=== PATIENT | female | born 1965 | race Caucasian/White ===

== ENCOUNTER 2017-06-15 09:48 | Day surgery (SDC) | payer BC ==
[~2017-06-15 09:48] MED LIST: Buffered Lidocaine 0.9% SYRIN* 5 ML/SYR SYRINGE INTRADERM ONE; Bupivacaine 0.5% SDV PF* 30 ML VIAL ONE; DiMENhydriNATE IV* 50 MG/ML VIAL IV PUSH PRN; Famotidine IV* 10 MG/ML 2 ML (20 mg) IV ONE; Lidocaine 1% MPF wEPI 200,000* 30 ML SDV ONE; Morphine INJ* 2 MG/ML 1 ML CARPUJECT IV PRN; PROCHLORPERAZINE INJ 5 MG/ML 2 ML VIAL IV PRN; fentaNYL* 50 MCG/ML 2 ML VIAL (100 MCG VIAL) IV PRN; oxyCODONE/Acetamin 5/325 MG* TAB PO PRN
[2017-06-15] MEDS ORDERED: Famotidine IV* 10 MG/ML 2 ML (20 mg) ONE (10:13)
[2017-06-15] MEDS ORDERED: Buffered Lidocaine 0.9% SYRIN* 5 ML/SYR SYRINGE ONE (10:13)
[2017-06-15] MEDS ORDERED: fentaNYL* 50 MCG/ML 2 ML VIAL (100 MCG VIAL) ONE (10:21)
[2017-06-15] MEDS ORDERED: KETAMINE HCL* 50 MG/ML 10 ML VIAL ONE (10:21)
[2017-06-15] MEDS ORDERED: Midazolam* 1 MG/ML 10 ML VIAL (10 MG) ONE (10:21)
[2017-06-15] MEDS ORDERED: Lidocaine 1% INJ* 10 MG/ML 30 ML SDV ONE (10:41)
[2017-06-15] MEDS ORDERED: Lidocaine 2% PF * 5 ML VIAL ONE (11:39)
[2017-06-15] MEDS ORDERED: Propofol* 10 MG/ML 20 ML BTL IV PUSH ONE (11:39)
[2017-06-15] MEDS ORDERED: Ondansetron INJ* 2 MG/ML VIAL ONE (11:39)
[2017-06-15] MEDS ORDERED: Dexamethasone IV* 4 MG/ML 1 ML (4 MG) ONE (11:39)
--- NOTE | 2017-06-15 11:43 | SURGPN ---
Brief Operative Note - Surgery Procedures: Procedures ARTIF RUPT MEMBRANES NEC (07/02/94) BILAT ENDOS OCC TUBE NEC (09/24/01) EPISIOTOMY (07/02/94) MONITORING NOS (07/02/94) OPEN BIOPSY OF BREAST (09/18/03) OTHER INSTILLATION (06/30/94) 06/15/17 Op Note (dict'd) Pre-op dx: right breast lump POst-op dx: same Procedure: excision right breast lump Surgeon: oJb Asst: none Anesth: locaL-mac SCDs on during surgery Abx: not indicated EBL: 5 cc Complications: none Pt. tolerated procedure well and was transferred to in a stable condition. [facility]
[2017-06-15] MEDS ORDERED: Acetaminophen TAB* 325 MG PO PRN (11:44)
[2017-06-15 13:22] VITALS: BP 108/66
--- NOTE | 2017-06-16 03:00 | OP ---
CC: [facility]; [place] . OPERATIVE REPORT: DATE OF OPERATION: 06/15/17 DATE OF : 67 SURGEON: Clover Kaiser MD ENDOSCOPY TECH: There was no hospital medical assistant for this case. PREOPERATIVE DIAGNOSIS: Right breast lump. POSTOPERATIVE DIAGNOSIS: Right breast lump. PROCEDURE: Excision of right breast lump. INDICATIONS: Ms. Robert is a 52-year-old woman who presented with a persistent lump in the left br east prompting a plan for further surgical intervention. DESCRIPTION OF PROCEDURE: She was brought to the operating room, placed in the OR table in a supine position and given IV sedation. The right breast was prepped and draped in the usual sterile fashion . After infiltrating with local anesthetic, a curvilinear incision was made over the lump, which has been marked preoperatively. Subcutaneous tissue was then divided with electrocautery until the lump could be grasped and elevated into the wound. It was then amputated from surrounding tissue and hand ed off as a specimen. Hemostasis was assured with electrocautery. The wound was irrigated with sali ne and additional local was then filled into the wound and then closure was accomplished. A 3-0 Vicr yl was used to close the subcutaneous tissue and the skin was closed with 4-0 Prolene in the subcutic ular fashion. Steri- Strips and a dry sterile dressing were applied. All sponges and instruments co unts are correct. The patient tolerated the procedure well and was transferred to recovery in a stab le condition. [id number]/[facility] #: [id number]
== END 2017-06-15 13:46 | disposition home or self-care (01) ==
LOC: OR 09:48
PROVIDERS: ATTEND Surgery
DX: D24.1 Benign neoplasm of right breast (principal)
CPT/HCPCS: 88307; J1100; J2001; J2250; J2405; J2704; J3010